=== PATIENT | female | born 1985 | race Caucasian/White ===

== ENCOUNTER 2020-07-12 14:49 | Emergency (ER) | payer OTHER, SELFPAY ==
[2020-07-12 14:49] VITALS: BP 96/56; PULSE 59; RESP 20; TEMP 36.7; O2SAT 100
--- NOTE | 2020-07-12 15:20 | ECG_ITS ---
Measurements Intervals [place] Rate: 63 P: 58 TN: 162 QRS: 64 QRSD: 86 T: 36 QT: 407 QTc: 418 Interpretive Statements SINUS RHYTHM NORMAL ECG Electronically Signed On 07-13-2020 7:07:39 CDT by Alex Ken D.O.
--- NOTE | 2020-07-12 15:42 | ED.SYNCOPE ---
HPI - Syncope General Chief Complaint: Syncope Stated Complaint: SYNCOPE Time Seen by Provider: 07/12/20 15:04 Source: patient Mode of arrival: EMS Limitations: no limitations History of Present Illness HPI narrative: This patient is a 35 year old female approximately 12 weeks who presents for evaluation of a syncopal episode. She states she was at her OBGYN's office get labs and an ultrasound. She states during the lab draw she passed out. She states during the blood draw she was able to feel that she was going to pass out. She states every thing was going black, and then she woke up with ambulance was arriving. She denies chest pain, sob, vomiting, diarrhea or palpitations . She has history of passing out with lab draws. She denies abdominal pain or vaginal bleeding. Related Data Home Medications Medication Instructions Recorded Confirmed PNV cmb#95-ferrous fumarate-FA 1 tablet PO DAILY 07/12/20 07/12/20 [] Allergies Allergy/AdvReac Type Severity Reaction Status Date / Time No Known Allergies Allergy Mild Verified 07/12/20 14:57 Review of Systems Review of Systems: All systems reviewed & are unremarkable except as noted in HPI and below Constitutional: Constitutional: Denies chills and Denies fever(s) Eyes: Eyes: Reports no additional eye complaints Cardiovascular: Cardiovascular: Denies chest pain, Denies rapid heart rate, Denies radiating jaw, neck or arm pain and Denies slow heart rate Respiratory: Respiratory: Denies cough, Denies dyspnea and Denies wheezing Gastrointestinal: Gastrointestinal: Denies abdominal pain, Denies diarrhea, Denies nausea and Denies vomiting Genitourinary: Genitourinary: Denies abnormal vaginal bleeding and Denies vaginal discharge [facility] Past Medical History Medical History (Updated 07/12/20 @ 16:05 by Zenaida Young MD) Patient denies medical problems Family History Family History (Updated 06/29/16 @ 23:21 by DOCTOR UNKNOWN) Mother Family history of cardiac disorder Depression Patient's mother is in good health Father Patient's father is in good health Family history of allergic disorder Sibling Patient's brother is in good health Grandparent Family history of kidney disease Other Family history of malignant neoplasm of cervix Social History Social History Smoking status: Never smoker Alcohol intake: never Gender identity (if verbalized by the patient): Female Exam Narrative: Exam Narrative: GENERAL: Well-appearing, well-nourished, and in no acute distress. HEAD: Normocephalic, atraumatic EYES: PERRLA and EOMI, conjunctiva clear without discharge EARS: TM's clear bilaterally without erythema or dullness NECK: Supple, without lymphadenopathy or mass RESPIRATORY: No respiratory distress, Airway patent, Respirations non-labored, Clear to auscultation without rales, rhonchi or wheeze HEART: Regular rate and rhythm. No murmur heard. Normal peripheral pulses. ABDOMEN: Soft, nontender, nondistended, normal active bowel sounds. No masses. No rebound or guarding, No organomegaly. EXTREMITIES: No edema, normal strength with full range of motion. SKIN: Warm, dry, normal color without rash NEURO: Alert and oriented x3. CN 2-12 grossly intact. No focal deficits. PSYCH: Normal mood and affect. Course Consultations Consultation #1: I discussed case with Dr. Duran and he has no other concerns or recommendations. Date: 07/12/20 Time: 16:03 Vital Signs Vital signs: Vital Signs Temperature 98.1 F 07/12/20 14:49 Pulse Rate 59 L 07/12/20 14:49 Respiratory Rate 20 07/12/20 14:49 Blood Pressure 96/56 L 07/12/20 14:49 Pulse Oximetry 100 07/12/20 14:49 Temperature 98.1 F 07/12/20 14:49 Pulse Rate 75 07/12/20 16:33 Respiratory Rate 16 07/12/20 16:33 Blood Pressure 100/65 07/12/20 16:33 Pulse Oximetry 100 07/12/20 16:33 MDM - Syncope ECG Data EKG #1: Attes
[2020-07-12 16:33] VITALS: BP 100/65; PULSE 75; RESP 16; O2SAT 100
== END 2020-07-12 16:33 | disposition home or self-care (01) ==
PROVIDERS: Emergency Provider General Practice; PCP Family Medicine
DX: O26.891 Other specified pregnancy related conditions, first trimester (principal); R55 Syncope and collapse; Z3A.12 12 weeks gestation of pregnancy
CPT/HCPCS: 93005; 99283

== ENCOUNTER 2020-12-26 10:36 | Outpatient (CLI) | payer OTHER, SELFPAY ==
[2020-12-26 11:35] LABS: Mean Platelet Volume 10.7 fl (7.4-10.4); Platelet Count Result 130 k/mm3 (150-375)
== END 2020-12-26 10:37 | disposition home or self-care (01) ==
PROVIDERS: PCP Family Medicine; Visit Provider Obstetrics & Gynecology
DX: D69.6 Thrombocytopenia, unspecified (principal)
CPT/HCPCS: 36415; 85049

== ENCOUNTER 2021-01-04 06:29 | Outpatient (CLI) | payer OTHER, SELFPAY ==
[2021-01-04] VITALS (24 sets, daily range): BP systolic 86–119; BP diastolic 42–63; PULSE 75–108; O2SAT 99–100
[2021-01-04 07:15] LABS: Basophils Percent Auto 0.3 % (0.2-1.2); Eosinophils Absolute Auto 0.1 K/mm3 (0-0.3); Eosinophils Percent Auto 1.3 % (0-4.4); Hematocrit 36.1 % (37.0-47.0); Hemoglobin 12.3 g/dL (12.0-15.0); Immature Granulocyte Absolute 0.06 K/mm3 (0.00-0.031); Immature Granulocyte Percent A 0.8 % (0-0.5); Immature Platelet Fraction Pct 4.2 % (0.9-11.2); Lymphocytes Absolute Auto 1.65 K/mm3 (0.9-3.2); Lymphocytes Percent Auto 21.1 % (18.3-44.2); Mean Corpuscular HGB Conc 34.1 g/dl (32-36); Mean Corpuscular Hemoglobin 31.9 pg (26-34); Mean Corpuscular Volume 93.8 fl (80-100); Mean Platelet Volume 10.3 fl (7.4-10.4); Monocytes Absolute Auto 0.7 K/mm3 (0.1-0.6); Monocytes Percent Auto 8.4 % (2.6-8.5); Neutrophils Absolute Auto 5.3 K/mm3 (1.3-6.7); Neutrophils Percent Auto 68.1 % (45.5-73.1); Platelet Count Result 152 k/mm3 (150-375); Red Blood Count 3.85 M/mm3 (4.2-5.4); Red Cell Distribution Width 12.6 % (11.5-14.5); White Blood Count 7.8 K/mm3 (4.5-10.0)
[2021-01-04] MEDS: TERBUTALINE SULFATE 1 MG/ML VIAL 0.25 MG SUB-Q (07:28)
--- NOTE | 2021-01-04 07:31 | PM.IMHP ---
H&P: HPI History of Present Illness Date/Time: 01/04/21 07:31 Chief Complaint: breech baby Narrative: Carrie Barraza is a 35 year old female at 36+ weeks with breech baby, confirmed yesterday on US. PEDRO 20, ahsan breech, EFW 50%. We previously discussed in depth options of CS at 39 weeks vs attempted ECV, she desires ECV. otherwise uncomplicated except by slightly low platelets, today improved to 150 from 134. Review of Systems Review of Systems: All systems reviewed & are unremarkable except as noted in HPI and below (hpi) [facility] Past Medical History Medical History (Updated 07/13/20 @ 00:00 by Leonidas Alcantara) Patient denies medical problems Family History Family History (Updated 12/28/20 @ 13:02 by Sofia Ramsey RN) Mother Depression Patient's mother is in good health Father Multiple system atrophy Sibling Patient's brother is in good health Other Patient's father is Social History Social History Smoking status: Never smoker Alcohol intake: never Substance use: never Gender identity (if verbalized by the patient): Female Spiritual care concerns: No Meds Home Medications and Allergies Home Medications Medication Instructions Recorded Confirmed Type PNV cmb#95-ferrous fumarate-FA 1 tablet PO DAILY 07/12/20 07/12/20 History [] Allergies Allergy/AdvReac Type Severity Reaction Status Date / Time No Known Allergies Allergy Mild Verified 12/28/20 12:31 Vital Signs Vital Signs - 24 hr 01/04/21 07:01 01/04/21 07:15 01/04/21 07:29 Pulse Rate 75 84 Blood Pressure 86/42 L 106/63 Pulse Oximetry 99 Exam Const: General: no acute distress Resp: Auscultation: clear to auscultation bilaterally Cardio: Rate: regular rate Rhythm: regular rhythm GI: GI Palp: Yes Soft to palpation Other: uterus nontender, soft, occ BH Skin: General skin exam: normal color and no rashes or lesions noted Extrem: General: normal to inspection H&P: Results Labs Labs: Short CBC 01/04/21 Range/Units 06:48 WBC 7.8 (4.5-10.0) K/mm3 Hgb 12.3 (12.0-15.0) g/dL Hct 36.1 L (37.0-47.0) % Plt Count 152 (150-375) k/mm3 Assessment and Plan Additional Plan Multip at 36+ weeks with breech baby, desires ECV FHT category 1 toco occasional pretreat with terbutaline DIscussed RBA, including possible emergent CS, consented.
--- NOTE | 2021-01-04 07:52 | PM.PROC ---
Procedure Note - Detailed Date of procedure: 01/04/21 Pre-op diagnosis: External Version Post-op diagnosis: same Procedure performed: External Cephalic Version Description of procedure: Deshawn breech was confirmed on ultrasound. Good fluid, neck not extended, head in RUQ, spine on left, posterior placenta. Terbutaline was given preprocedure. Using US gel as lubricant on the abdomen, the breech was elevated out of the pelvis and using a forward roll with steady pressure, the baby was gently rotated to transverse and then vertex. Heart tones were viewed with the US and found to be in the 150s. Position at end of the procedure was vertex with spine on maternal left. Carrie tolerated the procedure well. Baby was placed back on the external monitor to monitor post-procedure. Anesthesia: none Surgeon: Shilpi Thao MD [employer] Specialist: none Estimated blood loss (mL): 0 Drains: No Packing: No Pathology: none sent Complications: None Condition: stable Disposition: observation
--- NOTE | 2021-01-04 08:03 | PC.NURSE ---
0725- Dr. Thao in room, discussing plan of care with patient.
--- NOTE | 2021-01-04 09:09 | PC.NURSE ---
0855- Spoke with Dr. Thao, pateint reports no pain or bleeding. Orders to discharge to home with follow up at next scheduled appointment.
== END 2021-01-04 09:10 | disposition home or self-care (01) ==
LOC: ANHOBOP 06:34 → ANHOBPP 06:36
PROVIDERS: PCP Family Medicine; Visit Provider Obstetrics & Gynecology
DX: O32.1XX0 Maternal care for breech presentation, not applicable or unspecified (principal); Z3A.39 39 weeks gestation of pregnancy
CPT/HCPCS: 36415; 59412; 85025; 85055; 99199; J3105

== ENCOUNTER 2021-01-20 06:17 | Inpatient (IN) | payer OTHER, SELFPAY ==
[2021-01-20] VITALS (65 sets, daily range): BP systolic 93–165; BP diastolic 53–146; PULSE 60–94; RESP 18; TEMP 36.3–37.2; O2SAT 94–100; BMI 29.7
[2021-01-20 07:04] LABS: Basophils Percent Auto 0.2 % (0.2-1.2); Eosinophils Absolute Auto 0.1 K/mm3 (0-0.3); Eosinophils Percent Auto 1.1 % (0-4.4); Hematocrit 36.4 % (37.0-47.0); Hemoglobin 12.3 g/dL (12.0-15.0); Immature Granulocyte Absolute 0.05 K/mm3 (0.00-0.031); Immature Granulocyte Percent A 0.6 % (0-0.5); Immature Platelet Fraction Pct 4.5 % (0.9-11.2); Lymphocytes Absolute Auto 1.78 K/mm3 (0.9-3.2); Lymphocytes Percent Auto 21.6 % (18.3-44.2); Mean Corpuscular HGB Conc 33.8 g/dl (32-36); Mean Corpuscular Hemoglobin 31.4 pg (26-34); Mean Corpuscular Volume 92.9 fl (80-100); Mean Platelet Volume 10.4 fl (7.4-10.4); Monocytes Absolute Auto 0.7 K/mm3 (0.1-0.6); Monocytes Percent Auto 8.1 % (2.6-8.5); Neutrophils Absolute Auto 5.6 K/mm3 (1.3-6.7); Neutrophils Percent Auto 68.4 % (45.5-73.1); Platelet Count Result 160 k/mm3 (150-375); Red Blood Count 3.92 M/mm3 (4.2-5.4); Red Cell Distribution Width 12.6 % (11.5-14.5); White Blood Count 8.2 K/mm3 (4.5-10.0)
--- NOTE | 2021-01-20 07:05 | LDADM ---
This patient, Carrie Barraza, was admitted to Labor/Delivery/Recovery 106 on 01/20/21 at 06:17. Plans for labor, pain management and were discussed with patient. Patient/family oriented to hospital policies and general routines including ID bracelet, bed and alarms, visiting hours, pain management, procedures, bathroom and other care routines, personal items, smoking policy, room service/diet and guest tray routines, infant security routines, and visiting hours. Patient/Family are encouraged to report perceived risks to care and to ask questions if they do not understand what they are told or what they should do. See OBIX for further documentation.
[2021-01-20] MEDS: LACTATED RINGERS 1,000 ML 125 ML IV CONT ×2 (07:38→08:36)
--- NOTE | 2021-01-20 07:43 | WPDOBADMIT ---
Obstetrics - Admit Note Admission Note: record reviewed. No pertinent additions to the history and/or any subsequent changes in the physical findings that are not consistent with the expected course of the were found.EIL sve 3-4/70/-2, AROM moderate amount of clear fluid Additions to the history and/or subsequent changes in the physical findings follow. None.
--- NOTE | 2021-01-20 08:11 | WPDANESEPP ---
Anes - Eval Pre Procedure Procedure: labor epidural Date/Time: 01/20/21 08:11 Surgeon: Renee Preop Diagnosis: pain during labor Pre Op Diagnosis: Induction of Labor Patient Data Age: 35 Gender: F Height: 5 ft 10 in Weight: 94 kg Last Vital Signs Pulse 76 01/20/21 08:01 BP 110/63 01/20/21 08:01 Allergies Allergy/AdvReac Type Severity Reaction Status Date / Time No Known Allergies Allergy Mild Verified 12/28/20 12:31 Home Medications Medication Instructions Recorded Confirmed Type PNV cmb#95-ferrous fumarate-FA 1 tablet PO DAILY 07/12/20 01/20/21 History [] Laboratory Tests 01/20/21 01/20/21 06:56 06:56 WBC 8.2 K/mm3 K/mm3 (4.5-10.0) RBC 3.92 M/mm3 L M/mm3 (4.2-5.4) Hgb 12.3 g/dL g/dL (12.0-15.0) Hct 36.4 % L % (37.0-47.0) MCV 92.9 fl fl (80-100) MCH 31.4 pg pg (26-34) MCHC 33.8 g/dl g/dl (32-36) RDW 12.6 % % (11.5-14.5) Plt Count 160 k/mm3 k/mm3 (150-375) MPV 10.4 fl fl (7.4-10.4) Immature Gran % (Auto) 0.6 % H % (0-0.5) Neut % (Auto) 68.4 % % (45.5-73.1) Lymph % (Auto) 21.6 % % (18.3-44.2) Sebastian % (Auto) 8.1 % % (2.6-8.5) Eos % (Auto) 1.1 % % (0-4.4) Baso % (Auto) 0.2 % % (0.2-1.2) Lymph # (Auto) 1.78 K/mm3 K/mm3 (0.9-3.2) Sebastian # (Auto) 0.7 K/mm3 H K/mm3 (0.1-0.6) Eos # (Auto) 0.1 K/mm3 K/mm3 (0-0.3) Baso # (Auto) 0.0 K/mm3 K/mm3 (0.0-0.1) Abs Immat Gran (auto) 0.05 K/mm3 H K/mm3 (0.00-0.031) Absolute Neuts (auto) 5.6 K/mm3 K/mm3 (1.3-6.7) Absolute Nucleated RBC 0.0 K/mm3 K/mm3 (0.0-0.012) Nucleated RBC % 0.0 % % (0.0-0.2) % Immature Plt Fraction 4.5 % % (0.9-11.2) RPR Pending : gestational age (JEANNINE 01/27/2021) Patient hx anesthesia problems: none Family hx anesthesia problems: none PMFSH Past Medical History Medical History Patient denies medical problems Family History Family History Mother Depression Patient's mother is in good health Father Multiple system atrophy Sibling Patient's brother is in good health Other Patient's father is Social History Social History Smoking status: Never smoker Alcohol intake: never Substance use: never Gender identity (if verbalized by the patient): Female Spiritual care concerns: No Exam Day of Procedure 01/20/21 08:11 Patient weight: normal Heart: regular rate and rhythm Lungs: clear to auscultation and normal air movement Neurological: alert and oriented
[2021-01-20] MEDS: OXYTOCIN 30 UNITS/NS 500 ML 30 UNITS/500 ML BAG IV CONT (08:28)
--- NOTE | 2021-01-20 12:10 | P.PCNOB_ITS ---
OB - Delivery Note Procedure Delivery date: 01/20/21 Procedure: vaginal delivery Intrapartal events: None Induction method: AROM and per pitocin protocol Delivery monitor: external FHT and external uterine Route of delivery: Laceration Description: Perineal - 1st Degree Specimen: No Quantitative Blood Loss (ml): 178 Anesthesia type: Epidural Disposition: other () [place] Baby Date of : 01/20/21 Time of : 11:49 Weeks of gestation at delivery: 39 Infant gender: Female Weight (pounds): 7 Weight (ounces): 5 presentation: vertex position: Left Occiput Anterior Placenta delivery description: Spontaneous cord vessel description: 3 Vessels and Clamped/Cut score one minute: 8 score five minutes: 9 Narrative: mother and baby in stable condition
[2021-01-20] MEDS: OXYTOCIN 30 UNITS/NS 500 ML 30 UNITS/500 ML BAG 125 UNITS IV CONT (12:28)
[2021-01-20] MEDS: IBUPROFEN 600 MG TABLET PO (23:32)
[2021-01-21 04:40] VITALS: BP 105/62; PULSE 74; RESP 18; TEMP 36.2; O2SAT 100
[2021-01-21 05:12] LABS: Hematocrit 31.6 % (37.0-47.0); Hemoglobin 10.7 g/dL (12.0-15.0)
[2021-01-21 08:30] VITALS: BP 104/68; PULSE 86; RESP 16; TEMP 36.3; O2SAT 99
[2021-01-21] MEDS: MULTIVIT/MIN/PREN/FOL AC/IRON TABLET 1 TAB PO (08:37)
[2021-01-21] MEDS: IBUPROFEN 600 MG TABLET PO (08:38)
--- NOTE | 2021-01-21 08:40 | P.PNOB_ITS ---
OB - PN: Subj Subjective Date/time seen: 01/21/21 08:40 Patient comments: no complaints baby status: doing well [place] feeding status: exclusively breast feeding OB - PN: Obj Data Labs CBC & Chem 7: 01/21/21 04:50 Labs: Laboratory Results - last 24 hr 01/21/21 04:50 Hgb 10.7 L Hct 31.6 L OB - PN A/P Plan day: 1 Plan: routine care and discharge home Time Spent With Patient Time: Total time spent is greater than 50% in coordination of care (as d ocumented) at patient's floor/unit and/or counseling patient: Exam Const: General: cooperative Psych: Appearance: grossly normal Attitude: cooperative Thought process: Normal thought process present Thought content: Yes Normal thought content present Insight: Good insight present (Psych) Judgement: Good judgement present (Psych)
--- NOTE | 2021-01-21 08:42 | PM.OBDSVD ---
DS: Admitting Diagnosis Admitting Diagnosis Admitting Diagnosis: EIL OB - DS: Summary OB Procedures : None OB Procedures Intrapartum: Spontaneous Vag Delivery OB Procedures: : None Time Spent with Patient Time attestation: Total time spent providing and/or coordinating discharge services: DS: Data Data Completed and Pending Labs on day of discharge: Labs from last 24 hours 01/21/21 04:50 Hgb 10.7 L Hct 31.6 L Discharge Plan Discharge Attending physician on discharge: Danielle Duran Discharging Clinician: Hortencia Lala Patient Disposition: Home, Self-Care Activity: pelvic rest Diet: regular Patient Instructions: Antibiotic Form Stand Alone Forms: General Discharge Information Follow-up/Referrals: Hortencia Lala, PKM [Certified Nurse Site Safety Representative] - 4 Weeks Discharge Medications: Continued PNV cmb#95-ferrous fumarate-FA [] 28 mg iron- 800 mcg Tablet 1 tablet PO DAILY RF: 0 Date of admission: 01/20/21 06:17 Primary Care Provider: NitoJaime Admitting Provider: Danielle Duran Attending physician on admission: Danielle Duran Condition: Stable
[2021-01-23 10:19] VITALS: BP 123/79; PULSE 82; RESP 20; TEMP 36.8; O2SAT 100
[2021-01-23 11:00] LABS: Rapid Plasma Reagin Non-Reactive (NonReactive)
== END 2021-01-21 13:32 | disposition home or self-care (01) | DRG 807 ==
LOC: ANHLDR 06:20 → ANHOB2 14:49
PROVIDERS: Advanced Practice Midwife; Admitting Provider Obstetrics & Gynecology; PCP Family Medicine; Visit Provider Obstetrics & Gynecology
DX: O70.0 First degree perineal laceration during delivery (principal); Z37.0 Single live birth; Z3A.39 39 weeks gestation of pregnancy
CPT/HCPCS: 36415; 85014; 85018; 85025; 85055; 86592; 86850; 86900; 86901; A9270; J2590; J2795; J7120